=== PATIENT | female | born 1985 | race Caucasian/White ===

== ENCOUNTER 2016-05-18 07:40 | Inpatient (IN) | payer MEDICAID ==
[~2016-05-18] VITALS: Ht 152.4 cm; Wt 80.0 kg
[2016-05-18 07:54] VITALS: BP 108/60; PULSE 76; RESP 20; Ht 152.4 cm; Wt 80.0 kg
[2016-05-18] MEDS ORDERED: PREN1TAB79 PO (07:56)
[2016-05-18] MEDS ORDERED: LACTATED RINGER'S 1,000 ML IV SCH (07:56)
[2016-05-18] MEDS ORDERED: IBUPROFEN 600 MG TAB PO PRN (08:00)
[2016-05-18] MEDS ORDERED: CARBOPROST 250 MCG INJ IM PRN ×2 (08:00→13:30)
[2016-05-18] MEDS ORDERED: OXYTOCIN 30 UNITS/LR 500 ML IV SCH ×3 (08:00→12:30)
[2016-05-18] MEDS ORDERED: OXYTOCIN 30 UNITS/LR 500 ML IV PRN ×2 (08:00→13:30)
[2016-05-18] MEDS ORDERED: LIDOCAINE 1% (MPF) 30 ML INJ INJ PRN (08:00)
[2016-05-18] MEDS ORDERED: METHYLERGONOVINE 0.2 MG INJ IM PRN ×2 (08:00→13:30)
[2016-05-18] MEDS ORDERED: AMPICILLIN 2 GM/NS (PMX) 100 ML IV ONE (08:00)
[2016-05-18] MEDS ORDERED: BUTORPHANOL 2 MG INJ IV PRN (08:00)
[2016-05-18] MEDS ORDERED: MISOPROSTOL 200 MCG TAB PR PRN ×2 (08:00→13:30)
--- NOTE | 2016-05-18 08:10 | TRIAGE ---
OB Triage Datetime Report Generated by CPN: 05/18/2016 08:09 Datetime: 05/18/2016 07:52 Time of Arrival: 05/18/2016 07:45 EGA: 40.1 Arrived By: Ambulatory Arrived From: Home Chief Complaint: UCS SINCE 2300 Movement: Present Contractions: Regular Vaginal Bleeding: None Patient Complaints: Contractions Time Provider Notified: 05/18/2016 07:45 Provider Notified: DR RODRIGUEZ Initial Plan: EFM,CALL DR MORALES Datetime: 05/18/2016 07:51 Maternal Assessment Level of Consciousness: Fully Conscious DTR's/Clonus: DTRs 2+; No Clonus Headache: Denies Blurred Vision: No Respiratory Effort: Unlabored; Regular Rhythm; Equal Expansion Breath Sounds, Left: Clear and Equal Breath Sounds, Right: Clear and Equal Nausea/Vomiting: Denies RUQ Epigastric Pain: Denies Facial Edema: None Temperature Route: Axillary Fall Risk Assessment History of Falling: (0) No Secondary Diagnosis: (0) No Ambulatory Aid: (0) Bedrest/Nurse Assist IV Therapy: (0) No Gait: (0) Normal/Bedrest/Immobile Mental Status: (0) Oriented to Own Ability Fall Score: 0 Fall Risk Score Definition: No Risk: No action required Datetime: 05/18/2016 07:46 Maternal Assessment Level of Consciousness: Fully Conscious DTR's/Clonus: DTRs 2+ Headache: Denies Blurred Vision: No Nausea/Vomiting: Denies RUQ Epigastric Pain: Denies Facial Edema: None Labor Evaluation Frequency: Q 8 AT HOME Monitor Mode: External Quality: Moderate Pattern: Normal: <= 5 Contractions in 10 Minutes Resting Tone Colt: Relaxed Heart Rate FHR Baseline Rate: 140 Monitor Mode: External US FHR Baseline Changes: No Baseline Change Variability: Moderate 6-25 bpm Accelerations: 15X15 Decelerations: None Category: Category I Pain Assessment Pain Scale: 9 Pain Presence: Intermittent Pain Type: Contraction Pain Location: Abdomen Pain Goal: 4 Vaginal Exam Dilatation (cms): 6.0 Effacement (%): 90 Station: -1 Membrane Status: Intact Vaginal Bleeding: None Cervix, Consistency: Soft Cervix, Position: Anterior Presentation 'A': Cephalic
[2016-05-18] MEDS ORDERED: AMPICILLIN 2 GM/NS (PMX) 100 ML ONE (08:20)
[2016-05-18] MEDS ORDERED: LACTATED RINGER'S 1,000 ML IV PRN (08:30)
[2016-05-18 08:37] LABS: ADD SCAN DIFF NO
[2016-05-18 08:49] LABS: BASOPHILS % 0.2 % (0.0-2.0); EOSINOPHILS # 0.2 10^3/ul (0.0-0.5); EOSINOPHILS % 2.7 % (0.0-7.0); HEMATOCRIT 35.6 % (37.0-47.0); HEMOGLOBIN 11.7 g/dl (12.0-16.0); LYMPHOCYTES # 1.6 10^3/ul (0.8-2.9); LYMPHOCYTES % 18.1 % (15.0-51.0); MEAN CORPUSCULAR HEMOGLOBIN 30.4 pg (29.0-33.0); MEAN CORPUSCULAR HGB CONC 32.9 g/dl (32.0-37.0); MEAN CORPUSCULAR VOLUME 92.5 fl (82.0-101.0); MEAN PLATELET VOLUME 11.5 fl (7.4-10.4); MONOCYTE # 0.4 10^3/ul (0.3-0.9); MONOCYTES % 4.1 % (0.0-11.0); NEUTROPHIL # 6.7 10^3/ul (1.6-7.5); NEUTROPHILS % 74.5 % (39.0-77.0); PLATELET COUNT 168 10^3/UL (140-415); RED BLOOD COUNT 3.85 10^6/ul (4.20-5.40)
[2016-05-18 08:51] LABS: INR 0.91; PROTIME 12.2 Sec (12.2-14.2)
[2016-05-18 08:52] LABS: PARTIAL THROMBOPLASTIN TIME 27.5 Sec (25.0-35.0)
[2016-05-18] MEDS ORDERED: AMPICILLIN 1 GM/NS (PMX) 50 ML IV SCH (12:00)
[2016-05-18] MEDS: LACTATED RINGER'S 1,000 ML IV* SCH ×2 (13:05→19:49)
--- NOTE | 2016-05-18 13:10 | LDN ---
Date/Time of Note Date/Time of Note DATE: 05/18/16 TIME: 13:08 Delivery Summary of a viable baby boy weighing 3735 grams, or 8# 4oz, 20" long, and with Apgars of 7/9. Weeks of Gestation 40w 1d Placenta Delivered: Spontaneously Meconium: Light Episiotomy: No Perineal laceration: 1 Laceration repair: 1st degree perineal laceration repaired with 2-0 chromic. Anesthesia type: None Sponge & Needle done & correct: Yes All needle counts correct: Yes Any foreign bodies felt in the: No (vagina) Problems: Infant Delivery Information Sex Sex: male Apgars 1 Minute: 7 5 Minute: 9 Suctioning Nose & mouth suctioned at luc: Yes Delee suction performed: Yes Umbilical Cord Umbilical cord with: 3 Vessels Cord presentations: no nuchal cord Cord Blood was obtained: Yes Mother & Baby Disposition Disposition Mom & Baby to Maternity; Good: Yes Baby to NICU: No DAWOOD MORALES MD May 18, 2016 13:10
--- NOTE | 2016-05-18 13:20 | HP ---
Date/Time of Note Date/Time of Note DATE: 05/18/16 TIME: 13:10 OB - History Hx of Present Free Text/Dictation 30 y.o. with an IUP at 40w 1d came in labor at 0740 at 90%/6cm/-1 and with intact membranes. Chief Complaint: Labor Estimated Due Date: May 17, 2016 : 4 Para: 3 Care: Good Care Ultrasounds: Normal mid trimester US Obstetrical Complications: None Medical Complications: None Past Family/Social History * Past Medical, Surgical, Family and Obstetric Histories reviewed from chart. Blood Type: O+ Rubella: immune RPR/VDRL: Negative GBS Status: Positive HBsAG: Negative OB Admission Exam Vital Signs Vital Signs Vital Signs Date Time Temp Pulse Resp B/P Pulse Ox O2 Delivery O2 Flow Rate FiO2 05/18/16 07:54 98.0 76 20 108/60 Room Air Physical Exam HEENT: WNL Heart: Rhythm Normal Lungs: Clear Abdomen: WNL Extremities: Normal Reflexes: Normal Cervical Dilatation: 6cm Effacement: Other (90%) Station: -1 Membranes: Intact Amniotic Fluid: Clear Heart Rate: 140's Accelerations: Accelerations Present Decelerations: No Decelerations Varibility: Moderate Contractions on Admission: 6-10 Minutes Apart Intensity: Moderate Last 72 hours Lab Results CBC & BMP 05/18/16 08:20 OB Assessment/Plan Reason for admission: active labor, group B positive strep Plan: Expectant Management DAWOOD MORALES MD May 18, 2016 13:19
[2016-05-18] MEDS ORDERED: LANOLIN 7 GM TUBE TOP PRN (13:30)
[2016-05-18] MEDS ORDERED: OXYCODONE/ASPIRIN (4.88/325) TAB PO PRN (13:30)
[2016-05-18 15:00] VITALS: BP 104/51; PULSE 63; RESP 18
[2016-05-18 15:15] VITALS: BP 112/53; PULSE 65; RESP 18
[2016-05-18 16:00] VITALS: BP 107/68; PULSE 70; RESP 18
[2016-05-18] MEDS: IBUPROFEN 600 MG TAB PO SCH ×2 (17:52→23:28)
[2016-05-18 19:40] VITALS: BP 101/59; PULSE 65; RESP 20
[2016-05-19 04:11] VITALS: BP_SYST 116; BP_SYST 99; BP_DIAS 60; BP_DIAS 63; PULSE 78; PULSE 80; RESP 19
[2016-05-19] MEDS: LACTATED RINGER'S 1,000 ML IV* SCH ×2 (05:05→13:05)
[2016-05-19] MEDS: IBUPROFEN 600 MG TAB PO SCH ×3 (05:34→17:31)
[2016-05-19 07:19] LABS: ADD SCAN DIFF NO
[2016-05-19 07:23] LABS: BASOPHILS % 0.2 % (0.0-2.0); EOSINOPHILS # 0.3 10^3/ul (0.0-0.5); EOSINOPHILS % 3.2 % (0.0-7.0); HEMATOCRIT 33.7 % (37.0-47.0); HEMOGLOBIN 10.7 g/dl (12.0-16.0); LYMPHOCYTES # 2.1 10^3/ul (0.8-2.9); MEAN CORPUSCULAR HGB CONC 31.8 g/dl (32.0-37.0); MEAN CORPUSCULAR VOLUME 94.4 fl (82.0-101.0); MEAN PLATELET VOLUME 11.1 fl (7.4-10.4); MONOCYTE # 0.6 10^3/ul (0.3-0.9); MONOCYTES % 6.1 % (0.0-11.0); NEUTROPHIL # 6.1 10^3/ul (1.6-7.5); NEUTROPHILS % 67.1 % (39.0-77.0); PLATELET COUNT 156 10^3/UL (140-415); RED BLOOD COUNT 3.57 10^6/ul (4.20-5.40); RED CELL DISTRIBUTION WIDTH 14.1 % (11.5-14.5); WHITE BLOOD COUNT 9.1 10^3/ul (4.8-10.8)
[2016-05-19 08:00] VITALS: BP 109/59; PULSE 72; RESP 18
--- NOTE | 2016-05-19 15:37 | QN ---
Documentation Comment pt doing well ppd1 vss exam wnl a/p ppd1 doing well contineue care JAC FERGUSON MD May 19, 2016 15:37
[2016-05-19 16:00] VITALS: BP 101/55; PULSE 68; RESP 18
[2016-05-19 20:00] VITALS: BP 99/52; PULSE 66; RESP 20
[2016-05-20] MEDS: IBUPROFEN 600 MG TAB PO SCH ×3 (00:03→12:36)
[2016-05-20 04:00] VITALS: BP 95/46; PULSE 64; RESP 19
[2016-05-20 08:15] VITALS: BP 113/56; PULSE 72; RESP 18
--- NOTE | 2016-05-20 08:15 | DS ---
Date/Time of Note Date/Time of Note DATE: 05/20/16 TIME: 08:14 Discharge Summary Admission/Discharge Info Admit Date/Time May 18, 2016 at 08:03 Discharge Date/Time Final Diagnosis term preg Patient Condition: Stable Procedures vaginal delivery Hospital Course unremarkable Home Meds Reported Medications Vit W-Ca,Fe,FA(<1 mg) ( Vitamins) 1 Each Tablet, 1 EACH PO, TAB 05/18/16 CRYSTAL BEST MD May 20, 2016 08:14
--- NOTE | 2016-05-20 08:15 | PD.PPDC ---
PHOTO LAB SPECIALIST Discharge Instruction Condition Patient Condition: Stable Diet Diet: Resume Regular Diet Activity/Restrictions Activity: Normal Activity May Shower Restrictions: No Exercising No Lifting No Driving No Sexual Activity Nothing in the Vagina No [place] No Tampons, douche Wound/Drain Care Instructions Wound/Drain Care Instructions: Wash with soap and water Keep clean and dry Follow-up Follow-up with Physician: 3 Return to clinic for TRANSCRIPTION TYPIST Instructions: Fever greater than 101 Chills Worsening abdominal pain Excessive Vaginal Bleeding More than 2 pads per hour Unable to tolerate diet OB Instructions: Breast Tenderness Depression Blurried Vision Headache Surgical Instructions: Incisional Drainage Incisional Redness CRYSTAL BEST MD May 20, 2016 08:15
[2016-05-20] MEDS ORDERED: DIPHTH/TET/ACEL PERTUSS (ADULT) 0.5 ML VIAL IM* ONE (09:00)
== END 2016-05-20 13:35 | disposition home or self-care (01) | DRG 775 ==
LOC: OBT 07:40 → L-D 07:40 → OBT 07:45 → L-D 08:03 → PP1 14:42
PROVIDERS: ADMIT Obstetrics & Gynecology; ATTEND Obstetrics & Gynecology
PROC: 10E0XZZ Delivery of Products of Conception, External Approach (ICD-10-PCS; principal; 2016-05-18)
PROC: 0HQ9XZZ Repair Perineum Skin, External Approach (ICD-10-PCS; 2016-05-18)
DX: O70.0 First degree perineal laceration during delivery (principal); O99.820 Streptococcus B carrier state complicating pregnancy; Z3A.40 40 weeks gestation of pregnancy; Z37.0 Single live birth
CPT/HCPCS: 85025; 85610; 85730; 86592; 86900; 86901; 90715; 99464; G0463; J0290; J2590; J7120